=== PATIENT | female | born 1975 | race Caucasian/White ===

== ENCOUNTER 2018-05-17 09:39 | Outpatient (CLI) | payer BC ==
--- NOTE | 2018-05-18 11:13 | MMO ---
Bilateral MAMMO Bilat Screen [facility]. CLINICAL HISTORY: Patient is 42 years old and is seen for screening. The patient has no family history of breast cancer. The patient has no personal history of cancer. VIEWS: The views performed were: bilateral craniocaudal and bilateral mediolateral oblique. This study has been interpreted with the assistance of computer-aided detection. MAMMOGRAM FINDINGS: There are scattered fibroglandular densities. There are no suspicious masses, suspicious calcifications, or new areas of architectural distortion. IMPRESSION: THERE IS NO MAMMOGRAPHIC EVIDENCE OF MALIGNANCY. A ROUTINE FOLLOW-UP MAMMOGRAM IN 1 YEAR IS RECOMMENDED. ACR BI-RADS Category 1 - Negative MAMMOGRAPHY NOTE: 1. A negative mammogram report should not delay a biopsy if a dominant of clinically suspicious mass is present. 2. Approximately 10% to 15% of breast cancers are not detected by mammography. 3. Adenosis and dense breasts may obscure an underlying neoplasm.
== END 2018-05-17 09:40 | disposition home or self-care (01) ==
LOC: SCSMAMMO 09:39
PROVIDERS: ATTEND Family Medicine
DX: Z12.31 Encounter for screening mammogram for malignant neoplasm of breast (principal)
CPT/HCPCS: 77067

== ENCOUNTER 2018-10-04 11:50 | Outpatient (CLI) | payer BC ==
--- NOTE | 2018-10-04 12:10 | RAD ---
XR Knee Rt 4 View STANDARD: 10/04/2018 12:00 AM CLINICAL INDICATION: Anterior right knee pain COMPARISON: None. FINDINGS: Bones: No acute fracture is demonstrated. Joints: No joint capsular distention is evident.. Soft Tissue: No acute abnormality.. IMPRESSION: No acute osseous abnormality..
== END 2018-10-04 11:51 | disposition home or self-care (01) ==
LOC: SCSRAD 11:50
PROVIDERS: ATTEND Family Medicine
DX: M25.561 Pain in right knee (principal)